=== PATIENT | female | born 1975 | race Caucasian/White ===

== ENCOUNTER 2023-04-17 03:45 | Inpatient (IN) | payer BC, SELFPAY ==
[2023-04-16 20:40] VITALS: BP 175/101
[2023-04-16 20:55] LABS: % Basophils 0.6 % (0-2); % Eosinophils 1.4 % (0-6); % Immature Granulocytes 0.1 % (0-0.5); % Lymphocytes 28.1 % (20.5-51.1); % Monocytes 6.3 % (1.7-9.3); % Neutrophils 63.5 % (42.2-75.2); Absolute Basophils 0.1 10^3/uL (0-0.2); Absolute Eosinophils 0.1 10^3/uL (0-0.7); Absolute Lymphocytes 2.4 10^3/uL (1.2-3.4); Absolute Monocytes 0.5 10^3/uL (0.1-0.6); Absolute Neutrophils 5.4 10^3/uL (1.4-6.5); Hematocrit 33.2 % (37.0-47.0); Hemoglobin 11.7 g/dL (12.0-16.0); Mean Corp Hgb Conc. 35.2 g/dL (33.0-37.0); Mean Corpuscular Hgb 30.1 pg (27.0-31.0); Mean Corpuscular Volume 85.3 fL (81.0-99.0); Mean Platelet Volume 9.7 fL (7.4-10.4); Nucleated Red Blood Cells % 0 %; Platelet Count 313 10^3/uL (130-400); Red Blood Cell Count 3.89 10^6/uL (4.20-5.40); Red Cell Dist. Width 11.9 % (11.5-14.5); White Blood Cell Count 8.5 10^3/uL (4.8-10.8)
[2023-04-16 21:08] LABS: HCG, Serum Qualitative Screen Negative
[2023-04-16 21:12] LABS: ALT (SGPT) 19 U/L (0-35); AST (SGOT) 25 U/L (14-36); Albumin 4.4 g/dl (3.5-5.0); Alkaline Phosphatase 75 U/L (38-126); Blood Urea Nitrogen 27 mg/dl (7-17); Calcium 9.3 mg/dl (8.4-10.2); Carbon Dioxide 23 mmol/L (22-30); Chloride 104 mmol/L (98-107); Glucose 150 mg/dl (70-99); Lipase 136 U/L (23-300); Potassium 3.8 mmol/L (3.5-5.1); Sodium 136 mmol/L (135-145); Total Bilirubin 0.5 mg/dl (0.2-1.3); Total Protein 7.2 g/dl (6.3-8.2); eGFR 25.58
[2023-04-16 22:05] VITALS: BP 141/81
--- NOTE | 2023-04-16 22:21 | ED.GENMED ---
History of Present Illness
<CORNELIUS Berger - Last Filed: 04/16/23 22:46>
General
Chief Complaint: Abdominal Pain
Source: patient
Exam Limitations: none
Time Seen by Provider: 04/16/23 22:01
Nursing documentation reviewed up to this point in time: agreed with
Travel History
Have you had any contact with someone who has COVID-19?: Yes
Comment: herself
Do you have any symptoms of coronavirus? Fever > 100 degrees, chills, cough, shortness of breath, sore throat, loss of taste or smell, muscle aches, or headache?: Yes
Symptoms:: COVID + Wednesday
History of Present Illness
History of Present Illness:
This is a 47 year old female, with a hx of GERD, HTN, HLD, and polycystic kidneys, reporting to the ED c/o R upper abdominal pain x 2 days. Pt states she tested positive for COVID 4 days ago and she had symptoms of fever, body aches, and congestion.
2 days later, she developed R upper abdominal pain that has been worsening. She states the pain is constant and sharp and rates it a 10/10 in severity. Pt states the pain is worsened with movement. She took tylenol today around 9 hours ago. Pt also
adds that she had 2-3 episodes of diarrhea 4 days ago, but that has since resolved. She denies fever, chills, CP, SOB, LUGO, n/v, constipation, dysuria, hematuria, reflux, cough, palpitations, leg pain or swelling.
Pt drinks a couple of alcoholic drinks weekly. She denies any drug use. Denies any allergies.
Past History
<CORNELIUS Berger - Last Filed: 04/16/23 22:46>
Past History
ED Past Medical History: GERD, HTN and Other (polycystic liver and kidney ds, Gamboa's esophagus); Negative NIDDM
ED Past Surgical History: Orthopedic; Negative Appendectomy or Cholecystectomy
Patient has exhibited threatening behavior?: No
Social History
Tobacco: Non-smoker
Alcohol: Occasional
Drug: None
Personal:
Living: with family
Employment: Employed
Family History
Family History: Diabetes, Hypertension, CAD and Other (polycystic kidneys)
Review of Systems
<Eugenio Lorenzocoby [facility] - Last Filed: 04/16/23 22:46>
Review of Systems
Allergies reviewed?: Yes
All Other Systems: ROS reviewed and negative except as documented in HPI and ROS
Constitutional: Reports no symptoms; Denies fever or chills
EENT: Reports other (congestion)
Respiratory: Reports no symptoms; Denies cough or trouble breathing
Cardiac: Reports no symptoms; Denies chest pain or palpitations
ABD/GI: Reports abdominal pain (R upper abdominal pain); Denies nausea, vomiting or constipated
: Reports no symptoms; Denies dysuria or bleeding
Musculoskeletal: Reports no symptoms
Skin: Reports no symptoms
Neurological: Reports no symptoms
Phy Exam
<Eugenio Fernando [facility] - Last Filed: 04/16/23 22:46>
General Physical Exam
General Presentation: moderate distress
General age: appears stated age
General Skin: warm and dry
General Habitus: normal
General Mental: alert
General Hydration: appears well hydrated
Cardiovascular Exam
Cardiovascular Exam: regular rate/rhythm, no edema, no murmur and normal peripheral pulses
Heart Sounds: normal
Pulmonary Exam
Pulmonary Exam: lungs clear, no rales, no crackles, no rhonchi, no wheezing and other (increased effort of breathing due to pain)
Oxygen Status: room air
Cough: no cough
Respirations: moderate effort
Gastrointestinal Exam
Gastrointestinal Exam: normal bowel sounds, non distended and tender (significant tenderness RUQ, palpation in LUQ elicits pain in RUQ)
Palpation: left upper quadrant: Severe tenderness, left lower quadrant: No tenderness, right upper quadrant: Severe tenderness and right lower quadrant: No tenderness
Auscultation of Abdomen: normal
Neurological Exam
Neurological Exam: alert and oriented x3
Musculoskeletal Exam
Musculoskeletal Exam: full ROM and no edema
Skin Exam
Skin Exam: normal color and warm/dry
Psychiatric Exam
Psychiatric Exam: normal mood/affect
<Flavio Zhang DO - Last Filed: 04/17/23 03:00>
Physical Exam
Physical Exam:
Physical Exam
General: no apparent distress, not acutely ill
Neck: No jaundice
Heart: Regular
Lungs: no acute respiratory distress no wheezing
Abdomen: Tender in the right upper abdomen
Neuro: alert and oriented. no focal neurological deficits
Skin: no rash
Psychiatric: well kept. interactive and cooperative
Extremities: no edema. no calf tenderness.
Course
<ST CelinePA - Last Filed: 04/16/23 22:46>
Orders/Labs/Results
Orders:
Orders
04/16/23 20:44
Test Result ONCE
04/16/23 20:49
CBC/With Diff [Complete Blood Count/With Diff] Urgent
CMP [Comprehensive Metabolic Panel] Urgent
HCG, Serum Qualitative Screen Urgent
Lipase Urgent
04/16/23 22:55
Electrocardiogram (*1) Stat
Reason for Study: Abdominal Pain
Cardiac Monitoring- Treatment ONCE
EKG- Treatment ONCE
IV Insert/Care/Rem.- Treatment PRN
0.9% Sodium Chloride 250 ml [Nss] 250 ml IV BOLUS
Morphine Sulfate 4 mg IV NOW STA
Ondansetron Injectable [Zofran] 4 mg IV NOW STA
US Abdomen Complete/Upper Urgent
Comment:
Reason For Exam: ruq trevino
04/16/23 22:56
Acetaminophen 1000MG/100Ml [Ofirmev] 1,000 mg in 100 ml IV ONCE
Acetaminophen IV Indication:: ED Narcotic Naive Pt-ONCE
CR Chest - 2 Views Urgent
Comment:
Reason For Exam: covid pain
04/17/23 00:54
CT Abd/pel Without Iv Or Oral Urgent
Comment:
Reason For Exam: ruq trevino cyssts
Abnormal Lab Results
04/16/23
20:49
RBC 3.89 L 10^6/uL
(4.20-5.40)
Hgb 11.7 L g/dL
(12.0-16.0)
Hct 33.2 L %
(37.0-47.0)
BUN 27 H mg/dl
(7-17)
Creatinine 2.3 H mg/dL
(0.6-1.0)
Glucose 150 H mg/dl
(70-99)
04/16/23 20:49
04/16/23 20:49
Vital Signs
Initial and Last Documented VS:
Initial Vital Signs
Temp Pulse Resp BP Pulse Ox
98.1 F 98 16 175/101 98
04/16/23 20:40 04/16/23 20:40 04/16/23 20:40 04/16/23 20:40 04/16/23 20:40
Last Documented Vital Signs
Temp Pulse Resp BP Pulse Ox
98.1 F 80 18 120/70 93
04/16/23 20:40 04/17/23 02:00 04/17/23 02:00 04/17/23 01:00 04/17/23 02:00
Neolt;Flavio Zhang, DO - Last Filed: 04/17/23 03:00>
Orders/Labs/Results
Orders:
Orders
04/16/23 20:44
Test Result ONCE
04/16/23 20:49
CBC/With Diff [Complete Blood Count/With Diff] Urgent
CMP [Comprehensive Metabolic Panel] Urgent
HCG, Serum Qualitative Screen Urgent
Lipase Urgent
04/16/23 22:55
Electrocardiogram (*1) Stat
Reason for Study: Abdominal Pain
Cardiac Monitoring- Treatment ONCE
EKG- Treatment ONCE
IV Insert/Care/Rem.- Treatment PRN
0.9% Sodium Chloride 250 ml [Nss] 250 ml IV BOLUS
Morphine Sulfate 4 mg IV NOW STA
Ondansetron Injectable [Zofran] 4 mg IV NOW STA
US Abdomen Complete/Upper Urgent
Comment:
Reason For Exam: ruq trevino
04/16/23 22:56
Acetaminophen 1000MG/100Ml [Ofirmev] 1,000 mg in 100 ml IV ONCE
Acetaminophen IV Indication:: ED Narcotic Naive Pt-ONCE
CR Chest - 2 Views Urgent
Comment:
Reason For Exam: covid pain
04/17/23 00:54
CT Abd/pel Without Iv Or Oral Urgent
Comment:
Reason For Exam: ruq trevino cyssts
Abnormal Lab Results
04/16/23
20:49
RBC 3.89 L 10^6/uL
(4.20-5.40)
Hgb 11.7 L g/dL
(12.0-16.0)
Hct 33.2 L %
(37.0-47.0)
BUN 27 H mg/dl
(7-17)
Creatinine 2.3 H mg/dL
(0.6-1.0)
Glucose 150 H mg/dl
(70-99)
04/16/23 20:49
04/16/23 20:49
Vital Signs
Initial and Last Documented VS:
Initial Vital Signs
Temp Pulse Resp BP Pulse Ox
98.1 F 98 16 175/101 98
04/16/23 20:40 04/16/23 20:40 04/16/23 20:40 04/16/23 20:40 04/16/23 20:40
Last Documented Vital Signs
Temp Pulse Resp BP Pulse Ox
98.1 F 80 18 120/70 93
04/16/23 20:40 04/17/23 02:00 04/17/23 02:00 04/17/23 01:00 04/17/23 02:00
<CORNELIUS Berger - Last Filed: 04/16/23 22:46>
MDM/Problems Addressed
Differential Diagnosis Includes:
cholecystitis, biliary colic, appendicitis, PE, [place], pancreatitis, peptic ulcer disease
Chronic conditions affecting care: HTN and Kidney disease
<Flavio Zhang DO - Last Filed: 04/17/23 03:00>
*Critical Care Note
Total Time (30-74mins, 75-104mins- exclusive of procedures): Not Applicable
<Flavio Zhang DO - Last Filed: 04/17/23 03:00>
Update Note
Update Note:
2:59 AM labs noted prior ultrasound noted CT vision noted multiple cysts in the kidney and liver suspected stone in the gallbladder neck which would fit clinically at this point I believe is resolving her in the hospital for analgesia consideration
for advanced imaging or specialty consultation
ED Attending Note
<CORNELIUS Berger - Last Filed: 04/16/23 22:46>
-
Portions of this chart may have been created with voice recognition software.� Occasional wrong word or��sound alike� substitutions may have occurred due to the inherent limitations of voice recognition software.
<Flavio Zhang DO - Last Filed: 04/17/23 03:00>
ED Attending Note
Patient seen and examined by attending physician: Yes
I performed the substantive portion of visit, reviewed & personally made and approve the management plan that is documented in note by myself or KAYLAN.: Yes
ED Attending Note:
Seen with student agree with assessment and plan, 47-year-old female polycystic kidney disease hypertensive followed by nephrology MATT for for 5 days right upper quadrant pain sharp worse with movement did have some fevers, mild cough, labs are
noted creatinine is at her baseline, will check chest x-ray right upper quadrant ultrasound lipase, obviously hold NSAIDs, follow her clinical response
Discharge Plan
Departure
Patient Disposition: Admit
Date of Disposition: 04/17/23
Time of Disposition: 02:59
Admit to: Med/Surg
Presentation/result/management discussed w/ accepting MD/DO: Hospitalist
Patient with high blood pressure during this ER visit?: No
Condition: Fair
Discharge Problem:
Abdominal pain
Prescriptions:
No Action
amlodipine 5 MG tablet
5 mg PO BID
esomeprazole magnesium [Nexium] 40 MG capsule,delayed release(DR/EC)
40 mg PO DAILY
lisinopril [Zestril] 40 MG tablet
40 mg PO DAILY
ferrous sulfate [Slow Fe] 142 MG tablet extended release
142 mg PO DAILY
vo-uv-gxsn-FA-Ca carb-vit K [Women's Daily Formula] 1 EACH tablet
1 ea PO DAILY
Lactobacillus acidophilus [Probiotic] 1 EACH capsule
1 ea PO DAILY
tolvaptan (polycys kidney dis) [Jynarque] 30 MG tablet
30 mg PO QPM
tolvaptan (polycys kidney dis) [Jynarque] 30 MG tablet
60 mg PO DAILY
hydrocodone-acetaminophen 1 TABLET tablet
1 tab PO Q4HPRN PRN (Reason: pain>4/10) Qty: 20 0RF
Rx Instructions:
take with daily stool softener
Referrals:
UNKNOWN - PT DOES,NOT KNOW [Family Provider] -
Interventions
Interventions:
ED- Fall Risk Assessment Last Done: 04/16/23 22:10
UI-Fnsvyg-Nhwdjedbhl Assessment Last Done: 04/16/23 22:10
[2023-04-16 23:00] VITALS: BP 149/84
[2023-04-16] MEDS: MORPHINE SULFATE 4 MG IV (23:21)
[2023-04-16] MEDS: ZOFRAN 4 MG IV (23:21)
[2023-04-17] VITALS (8 sets, daily range): BP systolic 120–165; BP diastolic 70–92; BMI 35.1; BMI 34.6
--- NOTE | 2023-04-17 03:09 | ED.GENMED ---
History of Present Illness
General
Chief Complaint: Abdominal Pain
Time Seen by Provider: 04/16/23 22:01
Travel History
Have you had any contact with someone who has COVID-19?: Yes
Comment: herself
Do you have any symptoms of coronavirus? Fever > 100 degrees, chills, cough, shortness of breath, sore throat, loss of taste or smell, muscle aches, or headache?: Yes
Symptoms:: COVID + Wednesday
Past History
Past History
ED Past Medical History: GERD, HTN and Other (polycystic liver and kidney ds, Gamboa's esophagus); Negative NIDDM
ED Past Surgical History: Orthopedic; Negative Appendectomy or Cholecystectomy
Patient has exhibited threatening behavior?: No
Social History
Tobacco: Non-smoker
Alcohol: Occasional
Drug: None
Personal:
Living: with family
Employment: Employed
Family History
Family History: Diabetes, Hypertension, CAD and Other (polycystic kidneys)
Course
Orders/Labs/Results
Orders:
Orders
04/16/23 20:44
Test Result ONCE
04/16/23 20:49
CBC/With Diff [Complete Blood Count/With Diff] Urgent
CMP [Comprehensive Metabolic Panel] Urgent
HCG, Serum Qualitative Screen Urgent
Lipase Urgent
04/16/23 22:55
Electrocardiogram (*1) Stat
Reason for Study: Abdominal Pain
Cardiac Monitoring- Treatment ONCE
EKG- Treatment ONCE
IV Insert/Care/Rem.- Treatment PRN
0.9% Sodium Chloride 250 ml [Nss] 250 ml IV BOLUS
Morphine Sulfate 4 mg IV NOW STA
Ondansetron Injectable [Zofran] 4 mg IV NOW STA
US Abdomen Complete/Upper Urgent
Comment:
Reason For Exam: ruq trevino
04/16/23 22:56
Acetaminophen 1000MG/100Ml [Ofirmev] 1,000 mg in 100 ml IV ONCE
Acetaminophen IV Indication:: ED Narcotic Naive Pt-ONCE
CR Chest - 2 Views Urgent
Comment:
Reason For Exam: covid pain
04/17/23 00:54
CT Abd/pel Without Iv Or Oral Urgent
Comment:
Reason For Exam: ruq trevino cyssts
04/17/23 03:07
HYDROmorphone [Dilaudid] 0.5 mg IV NOW STA
04/17/23 03:08
Acetaminophen 1000 MG ONCE Acetaminophen 1000MG/100Ml [Ofirmev] 1,000 mg in 100 ml IV ONCE
Acetaminophen IV Indication:: ED Narcotic History-ONCE
Ondansetron Injectable [Zofran] 4 mg IV NOW STA
Abnormal Lab Results
04/16/23
20:49
RBC 3.89 L 10^6/uL
(4.20-5.40)
Hgb 11.7 L g/dL
(12.0-16.0)
Hct 33.2 L %
(37.0-47.0)
BUN 27 H mg/dl
(7-17)
Creatinine 2.3 H mg/dL
(0.6-1.0)
Glucose 150 H mg/dl
(70-99)
04/16/23 20:49
04/16/23 20:49
Vital Signs
Initial and Last Documented VS:
Initial Vital Signs
Temp Pulse Resp BP Pulse Ox
98.1 F 98 16 175/101 98
04/16/23 20:40 04/16/23 20:40 04/16/23 20:40 04/16/23 20:40 04/16/23 20:40
Last Documented Vital Signs
Temp Pulse Resp BP Pulse Ox
98.1 F 80 18 120/70 93
04/16/23 20:40 04/17/23 02:00 04/17/23 02:00 04/17/23 01:00 04/17/23 02:00
Update Note
Update Note:
Update patient still with pain to the right upper quadrant will redosed with meds mid
ED Attending Note
-
Portions of this chart may have been created with voice recognition software.� Occasional wrong word or��sound alike� substitutions may have occurred due to the inherent limitations of voice recognition software.
Discharge Plan
Departure
Patient Disposition: Admit
Date of Disposition: 04/17/23
Time of Disposition: 02:59
Admit to: Med/Surg
Presentation/result/management discussed w/ accepting MD/DO: Hospitalist
Patient with high blood pressure during this ER visit?: No
Condition: Fair
Discharge Problem:
Abdominal pain, Gallstones
Prescriptions:
No Action
amlodipine 5 MG tablet
5 mg PO BID
esomeprazole magnesium [Nexium] 40 MG capsule,delayed release(DR/EC)
40 mg PO DAILY
lisinopril [Zestril] 40 MG tablet
40 mg PO DAILY
Slow Fe 142 MG tablet extended release
142 mg PO DAILY
Women's Daily Formula 1 EACH tablet
1 ea PO DAILY
Jynarque 30 MG tablet
30 mg PO QPM
Jynarque 30 MG tablet
60 mg PO DAILY
Referrals:
UNKNOWN - PT DOES,NOT KNOW [Family Provider] -
Interventions
Interventions:
ED- Fall Risk Assessment Last Done: 04/16/23 22:10
WF-Qhigxv-Mmosaipshb Assessment Last Done: 04/16/23 22:10
[2023-04-17] MEDS: OFIRMEV 100 IV (03:16)
[2023-04-17] MEDS: ZOFRAN 4 MG IV ×2 (03:16→05:54)
--- NOTE | 2023-04-17 03:38 | HPS.HSE ---
Addendum entered and electronically signed by Prudencio Rivera DO 04/17/23 04:02:
A/P:
COVID-19 Infection
- Patient is vaccinated x 3 total - none recently.
- Initial symptoms were 2/3 with positive test on 04/12.
- Follow proper precautions for now - nearly out of window for isolation.
- No role for any COVID-specific medications as symptoms improving.
- Follow for any new / worsening symptoms.
Original Note:
Family Physician
-
Family Physician: NOT KNOW UNKNOWN - PT DOES
Chief Complaint
-
Abd Pain
History of Present Illness
Patient is a 47y F with PMH significant for polycystic disease involving the kidneys and liver who presents to ED complaining of RUQ pain. Patient states that symptoms started on Wednesday and have been constant / persistent since that time.
She notes pain in the RUQ that occasionally radiates to the back. Pain is worse with coughing / deep breathing / movement / etc. Patient denies N/V. No fevers / chills. No changes in bowel habits. Pain does not appear to be affected by eating.
Patient does have a prior history of biliary colic in 2019. Pain at that time was more classically colicky in nature and triggered by fatty foods, etc.
Cholecystectomy was not performed due to her polycystic liver.
Patient states that she developed cough and fatigue on Wednesday of this past weekend. She tested positive for COVID-19 on Wednesday of this week.
Patient had some initial loose stools which have since resolved. She states that her cough, malaise, etc seem to be consistently improving.
She has taken no medication for the COVID-19 besides Tylenol and NyQuil.
No other new medications.
Medical History
Past Medical History
Past Medical History: Reports Other
Additional Past Medical History:
Polycystic Kidney Disease
Hypertension
CKD III
GERD / Gamboa's Esophagus
Cholelithiasis
Anemia of CKD
Obesity
Phyllodes Tumor Right Breast
Past Surgical History: Reports Other
Additional Past Surgical History:
Right Lumpectomy
D&C
Bunionectomy
Social History
Tobacco: Non-smoker
Alcohol: Occasional
Drug: None
Personal:
Living: With Family
Family History
Family History: Not pertinent
Allergies / Home Medications
Allergies reflects when Allergies were last updated in [facility].
Home Medications with original date entered in [facility]
Allergy/Medication List:
Allergies
Allergy/AdvReac Type Severity Reaction Status Date / Time
No Known Allergies Allergy Verified 04/16/23 20:44
Home Medications
amlodipine 5 mg tablet 5 mg PO BID 07/08/21
esomeprazole magnesium 40 mg capsule,delayed release (Nexium) 40 mg PO DAILY 07/08/21
ferrous sulfate 142 mg (45 mg iron) tablet,extended release (Slow Fe) 142 mg PO DAILY 07/08/21
lisinopril 40 mg tablet (Zestril) 40 mg PO DAILY 07/08/21
gtkzpegq-cvo-asao-FA-Ca carb-vit K 18 mg iron-400 mcg-500 mg tablet (Women's Daily Formula) 1 ea PO DAILY 07/08/21
tolvaptan (polycys kidney dis) 30 mg tablet (Jynarque) 30 mg PO QPM 07/08/21
tolvaptan (polycys kidney dis) 30 mg tablet (Jynarque) 60 mg PO DAILY 07/08/21
Review of Systems
-
History Source: Patient
A 12 point ROS was completed and negative except as noted: Yes
Constitutional: Reports Fatigue; Denies Fever or Chills
EENT: Denies Sore Throat
Respiratory: Denies Cough or Trouble Breathing
Cardiac: Denies Chest Pain or Palpitations
Abdomen/GI: Reports Abdominal Pain and Nausea; Denies Vomiting, Diarrhea, Constipated, Bloody Stools or Black Stools
: Denies Dysuria or Frequency
Musculoskeletal: Denies Joint Pain or Edema
Neurological: Denies Dizzy or Headache
Psych: Denies Depression or Anxiety
Physical Exam
Vital Signs
Vital Signs
Temp Pulse Resp BP Pulse Ox
98.1 F 80 25 120/70 95
04/16/23 20:40 04/17/23 03:08 04/17/23 03:08 04/17/23 01:00 04/17/23 03:08
Physical Exam
General: Other (47y F in no acute distress.)
HEENT: Moist mucous membranes
Respiratory: Clear; No Wheezes, Rales or Rhonchi
Cardiac: S1/S2 and Regular Rhythm; No Murmur
GI: Soft, Non Distended, Normal Bowel Sounds and Other (Tenderness in RUQ and pain in RUQ with palpation in other areas of the abdomen. No guarding.)
Musculoskeletal: No Clubbing, No Cyanosis and No Edema
Neuro: AO x 3
Laboratory Results
-
04/16/23 20:49
04/16/23 20:49
Laboratory Results
Total Bilirubin 0.5 mg/dl (0.2-1.3) 04/16/23 20:49
AST 25 U/L (14-36) 04/16/23 20:49
ALT 19 U/L (0-35) 04/16/23 20:49
Alkaline Phosphatase 75 U/L (38-126) 04/16/23 20:49
Lipase 136 U/L (23-300) 04/16/23 20:49
Impression/Plan
-
A/P: Patient is a 47y F with PMH significant for PCKD who presents to ED complaining of RUQ pain x 3 days.
RUQ Pain
- Admit for further evaluation and treatment.
- Pain seems related to cholelithiasis with h/o biliary colic and CT suggesting stone in the neck of the gallbladder.
- Pain is somewhat atypical in that it is constant and characteristically more c/w pleuritic pain (worse with cough, breathing, movement).
- Given concurrent COVID-19 infection and other risk factors, ? thromboembolic disease in the RLL causing current symptoms.
- Evaluate / treat cholelithiasis as noted below.
- Single dose of therapeutic Lovenox for now (dosed for her renal function).
- Unable to obtain CTA given renal impairment. Check V/Q scan in AM to evaluate for possible PE.
Cholelithiasis
- CT scan shows stone in the neck of the gallbladder.
- Impacted stone may explain her more constant symptoms.
- Clear liquids for now.
- Supportive care with pain control, antiemetics, etc.
- Surgery evaluation for additional recommendations / options.
- Previously cholecystectomy was deferred given polycystic involvement of the liver.
- Follow for any new / worsening symptoms.
PCKD
CKD IIIb
- Stable. Renal function is at / near known baseline.
- Continue current med regimen including tolvaptan and lisinopril.
- IVFs for now to ensure adequate volume status, especially while on tolvaptan.
- Follow for changes in renal function, new symptoms, etc.
Benign Hypertension
- Stable. Continue current med regimen with holding parameters to avoid hypotension.
GERD / Gamboa's Esophagus
- Stable. Continue PPI.
DVT Prophylaxis: Lovenox dose now. V/Q scan as noted above - therapeutic or prophylactic regimen depending on those results.
Code Status: Full
[2023-04-17] MEDS: DILAUDID 0.5 MG IV (04:03)
[2023-04-17] MEDS: LOVENOX 100 MG SC ×2 (04:27→18:13)
--- NOTE | 2023-04-17 05:32 | PTCARENOTE ---
Received patient from ED. Patient AAOx3, lungs clear, shallow. Nausea and small amount of clear emesis upon arrival after walking to the bedside. Tender RUQ. Rates her pain 2/10. Pain is controlled from recent Dilaudid in ED. Patient oriented to the
unit. Call xavier in reach. Bedside commode placed at the bedside as requested. Patient verbalized an understanding to rings for transfers.
[2023-04-17] MEDS: NSS 1000 IV ×2 (05:40→15:44)
[2023-04-17 07:15] LABS: Hematocrit 30.9 % (37.0-47.0); Hemoglobin 10.9 g/dL (12.0-16.0); Mean Corp Hgb Conc. 35.3 g/dL (33.0-37.0); Mean Corpuscular Hgb 30.4 pg (27.0-31.0); Mean Corpuscular Volume 86.1 fL (81.0-99.0); Mean Platelet Volume 10.2 fL (7.4-10.4); Platelet Count 248 10^3/uL (130-400); Red Blood Cell Count 3.59 10^6/uL (4.20-5.40); Red Cell Dist. Width 11.8 % (11.5-14.5); White Blood Cell Count 8.3 10^3/uL (4.8-10.8)
[2023-04-17 07:42] LABS: ALT (SGPT) 15 U/L (0-35); AST (SGOT) 23 U/L (14-36); Albumin 3.6 g/dl (3.5-5.0); Alkaline Phosphatase 59 U/L (38-126); Blood Urea Nitrogen 26 mg/dl (7-17); Carbon Dioxide 21 mmol/L (22-30); Chloride 105 mmol/L (98-107); Direct Bilirubin 0.5 mg/dl (0.0-0.4); Estimated Creatinine Clearance 38 ml/min; Glucose 126 mg/dl (70-99); Potassium 3.8 mmol/L (3.5-5.1); Sodium 139 mmol/L (135-145); Total Bilirubin 0.5 mg/dl (0.2-1.3); Total Protein 6.2 g/dl (6.3-8.2); eGFR 28.53
[2023-04-17] MEDS: SAMSCA 60 MG PO (09:00)
[2023-04-17] MEDS: PROTONIX IV 40 MG IV (09:01)
[2023-04-17] MEDS: ZESTRIL 40 MG PO (09:01)
[2023-04-17] MEDS: NORVASC 5 MG PO ×2 (09:01→20:17)
[2023-04-17] MEDS: NSS (PRESERVATIVE FREE) 10 ML IV (09:02)
--- NOTE | 2023-04-17 10:03 | W.PN.HOSP.TC ---
Today's Communication/Plan
-
see A/P
Assessment / Plan
Assessment / Plan
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
radiates to the back.�Pain is worse with coughing / deep breathing / movement / etc.�Patient denies N/V.� No fevers / chills.� No changes in bowel habits.� Pain does not appear to be affected by eating.
Patient does have a prior history of biliary colic in 2019.� Pain at that time was more classically colicky in nature and triggered by fatty foods, etc.
Cholecystectomy was not performed due to her polycystic liver.
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
Patient had some initial loose stools which have since resolved.� She states that her cough, malaise, etc seem to be consistently improving.
She has taken no medication for the COVID-19 besides Tylenol and NyQuil.
No other new medications.
A/P:
# RUQ Abd Pain
Pain seems related to cholelithiasis with h/o biliary colic and CT suggesting stone in the neck of the gallbladder.
However pain is constant and more c/w pleuritic pain (worse with cough, breathing, movement).
Considering ?thromboembolic disease in setting of concurrent COVID-19 infection
Unable to obtain CTA given renal impairment.�Check V/Q scan for possible PE.
Can continue therapeutic Lovenox (dosed for her renal function) prior to VQ scan
# COVID-19 Infection
Patient is vaccinated x 3 total - none recently.
Initial symptoms on 04/10 with positive test on 04/12. Out of window for RemD , also NO need with improving symptoms
Follow proper precautions for now - nearly out of window for isolation.
# Cholelithiasis
CT scan shows stone in the neck of the gallbladder. Impacted stone may explain her more constant symptoms.
Clear liquids for now.
Supportive care with pain control, antiemetics, etc.
Surgery evaluation for additional recommendations / options.
Previously cholecystectomy was deferred given polycystic involvement of the liver.
# PCKD
# CKD IIIb�- Stable.�
Renal function is at / near known baseline.
Continue current med regimen including tolvaptan and lisinopril.
IVFs for now to ensure adequate volume status, especially while on tolvaptan.
# Benign Hypertension- Stable.�
Continue current med regimen with holding parameters to avoid hypotension.
# GERD / Gamboa's Esophagus�- Stable.�
Continue PPI.
DVT Prophylaxis:� Lovenox dose now.� V/Q scan as noted above - therapeutic or prophylactic regimen depending on those results.
Code Status:� Full
Anticipated Discharge: 24 - 48 hours
Subjective/Interval History
-
Date of Service: April 17, 2023
Objective Data
-
Labs:
Laboratory Results
04/17/23
07:00
WBC 8.3
Hgb 10.9 L
Hct 30.9 L
Plt Count 248 D
Sodium 139
Potassium 3.8
Chloride 105
Carbon Dioxide 21 L
BUN 26 H
Creatinine 2.1 H
Glucose 126 H
Calcium 9.0
Total Bilirubin 0.5
AST 23
ALT 15
Alkaline Phosphatase 59
Vital Signs:
Vital Signs
Temp Pulse Resp BP Pulse Ox
36.6 C 83 18 130/80 94
04/17/23 07:05 04/17/23 07:05 04/17/23 07:05 04/17/23 07:05 04/17/23 07:05
Review of Systems
-
Abdomen/GI: Reports Abdominal Pain (RUQ abd pain)
Physical Exam
-
General: Well Developed, Well Nourished, No Apparent Distress, Comfortable, Conversant and Obese; Negative Respiratory Distress
HEENT: Normocephalic, Atraumatic, Nose Appears Normal and Ears Appear Normal; Negative Oxygen
Respiratory: Clear to Auscultation and Non Labored Respirations; Negative Accessory Resp Muscle Use
Cardiac: Regular Rhythm and S1/S2
GI: Soft, Nondistended, Normal Bowel Sounds and Tender (RUQ)
Skin: Warm and Dry
Neuro: Awake, Alert, Oriented and AO x 3
Psych: Calm and Intact Judgement/Insight
Data Reviewed
-
CT Scan: Report Reviewed by me
Labs: Labs Reviewed by me
--- NOTE | 2023-04-17 11:44 | W.PN.UPDATE ---
Update Note
Progress Note Update
Surgery consult noted. Based on prior recommendations and imaging (reviewed by me), she is not a candidate for CCY at this institution 2/2 extensive cystic disease of her liver. The extensive cystic disease may also explain her more chronic pain in
this area, as clearly her liver capsule will be stretched by all the cysts. Furthermore she is presently on a diet and on full-dose A/C. In addition to this, she has active COVID-19 and is still within the recommended isolation window.
With all this in mind, direct pt encounter for surgical evaluation will be deferred. HIDA scan is ordered. If this shows non-occlusion of cystic duct, would then ADAT and defer surgical consult indefinitely. If there is a question of cystic duct
occlusion, she may require a percutaneous drain.
Further mgmt from surgery team will be guided by HIDA result
--- NOTE | 2023-04-17 15:17 | CM ---
CM following re: discharge planning.
Reviewed pt's chart, met with pt. pt's spouse and daughter at bedside. '
Pt is a 47 year old female, admitted with primary dx of RUQ Abd Pain, COVID+.
Pt reports she lives with in a 2 story townhouse, has 2 supportive daughters. 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
PCP: [facility]
Pharmacy: [facility].
D/C plan: home with anticipated no needs. to transport at discharge.
CM will follow with discharge plan updates as hospitalization progresses
[2023-04-17] MEDS: SAMSCA 30 MG PO (18:13)
[2023-04-17] MEDS: TYLENOL 650 MG PO (20:34)
--- NOTE | 2023-04-17 21:10 | PTCARENOTE ---
Patient c/o loose stool at times. Advised ADRIÁN Cardoso. Will send stool sample when collected as ordered.
[2023-04-18] MEDS: NSS 1000 IV (01:02)
[2023-04-18 06:00] VITALS: BMI 34.7
[2023-04-18] MEDS: LOVENOX 100 MG SC ×2 (06:29→18:09)
[2023-04-18 06:45] LABS: Mean Corp Hgb Conc. 35.5 g/dL (33.0-37.0); Mean Corpuscular Hgb 30.7 pg (27.0-31.0); Mean Corpuscular Volume 86.6 fL (81.0-99.0); Mean Platelet Volume 9.7 fL (7.4-10.4); Platelet Count 248 10^3/uL (130-400); Red Blood Cell Count 3.58 10^6/uL (4.20-5.40); Red Cell Dist. Width 11.9 % (11.5-14.5); White Blood Cell Count 5.9 10^3/uL (4.8-10.8)
[2023-04-18 07:05] VITALS: BP 149/102
[2023-04-18 07:12] LABS: Blood Urea Nitrogen 17 mg/dl (7-17); Calcium 8.7 mg/dl (8.4-10.2); Carbon Dioxide 24 mmol/L (22-30); Chloride 111 mmol/L (98-107); Estimated Creatinine Clearance 38 ml/min; Glucose 90 mg/dl (70-99); Potassium 3.6 mmol/L (3.5-5.1); Sodium 141 mmol/L (135-145); eGFR 28.53
[2023-04-18 09:06] VITALS: BMI 34.6
[2023-04-18] MEDS: SAMSCA 60 MG PO (09:22)
[2023-04-18] MEDS: ZESTRIL 40 MG PO (09:22)
[2023-04-18] MEDS: NORVASC 5 MG PO ×2 (09:22→19:45)
[2023-04-18] MEDS: NSS (PRESERVATIVE FREE) 10 ML IV (09:23)
[2023-04-18] MEDS: PROTONIX IV 40 MG IV (09:23)
[2023-04-18] MEDS: TYLENOL 650 MG PO ×2 (09:41→19:43)
--- NOTE | 2023-04-18 10:41 | W.PN.HOSP.TC ---
Today's Communication/Plan
-
see A/P
Assessment / Plan
Assessment / Plan
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
radiates to the back.�Pain is worse with coughing / deep breathing / movement / etc.�Patient denies N/V.� No fevers / chills.� No changes in bowel habits.� Pain does not appear to be affected by eating.
Patient does have a prior history of biliary colic in 2019.� Pain at that time was more classically colicky in nature and triggered by fatty foods, etc.
Cholecystectomy was not performed due to her polycystic liver.
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
Patient had some initial loose stools which have since resolved.� She states that her cough, malaise, etc seem to be consistently improving.
She has taken no medication for the COVID-19 besides Tylenol and NyQuil.
No other new medications.
A/P:
# RUQ Abd Pain, may be due to extensive liver cystic disease vs cholelithiasis with h/o biliary colic and CT suggesting stone in the neck of the gallbladder.
Will check VQ scan to r/o thromboembolic disease in setting of concurrent COVID-19 infection. Unable to obtain CTA given renal impairment.�
Continue therapeutic Lovenox (dosed for her renal function) prior to VQ scan
# Diarrhea
check C diff, stool Cx
# COVID-19 Infection
Patient is vaccinated x 3 total - none recently.
Initial symptoms on 04/10 with positive test on 04/12. Out of window for RemD , also NO need with improving symptoms
Follow proper precautions for now - nearly out of window for isolation.
# Cholelithiasis
CT scan shows stone in the neck of the gallbladder. Impacted stone may explain her more constant symptoms.
Clear liquids for now.
Supportive care with pain control, antiemetics, etc.
Surgery on board, does not recc surgical intervention, check HIDA scan
Previously cholecystectomy was deferred given polycystic involvement of the liver.
# PCKD
# CKD IIIb�- Stable.�
Renal function is at / near known baseline.
Continue current med regimen including tolvaptan and lisinopril.
# Benign Hypertension- Stable.�
Continue current med regimen with holding parameters to avoid hypotension.
# GERD / Gamboa's Esophagus�- Stable.�
Continue PPI.
DVT Prophylaxis:� therapeutic Lovenox dose prior to V/Q scan
Code Status:� Full
DW RN
Anticipated Discharge: 24 - 48 hours
Subjective/Interval History
-
Date of Service: April 18, 2023
Objective Data
-
Labs:
Laboratory Results
04/18/23
06:36
WBC 5.9
Hgb 11.0 L
Hct 31.0 L
Plt Count 248
Sodium 141
Potassium 3.6
Chloride 111 H
Carbon Dioxide 24
BUN 17
Creatinine 2.1 H
Glucose 90
Calcium 8.7
Vital Signs:
Vital Signs
Temp Pulse Resp BP Pulse Ox
37.0 C 88 20 149/102 94
04/18/23 07:05 04/18/23 07:05 04/18/23 07:05 04/18/23 07:05 04/18/23 07:05
I&O
04/17/23 04/18/23 04/19/23
06:59 06:59 06:59
Intake Total 3940 / 3940
Output Total 200 / 200
Balance -200 / -200 3940 / 3940
Review of Systems
-
Abdomen/GI: Reports Abdominal Pain (RUQ abd pain)
Physical Exam
-
General: Well Developed, Well Nourished, No Apparent Distress, Comfortable, Conversant and Obese; Negative Respiratory Distress
HEENT: Normocephalic, Atraumatic, Nose Appears Normal and Ears Appear Normal; Negative Oxygen
Respiratory: Clear to Auscultation and Non Labored Respirations; Negative Accessory Resp Muscle Use
Cardiac: Regular Rhythm and S1/S2
GI: Soft, Nondistended, Normal Bowel Sounds and Tender (RUQ)
Skin: Warm and Dry
Neuro: Awake, Alert, Oriented and AO x 3
Psych: Calm and Intact Judgement/Insight
Data Reviewed
-
CT Scan: Image personally visualized and interpreted and Report Reviewed by me
Labs: Labs Reviewed by me
--- NOTE | 2023-04-18 13:49 | CM ---
CM reviewed chart. No skilled discharge needs identified. Remains on room air. CM to continue to follow and assess for needs.
[2023-04-18 15:00] VITALS: BP 126/85
[2023-04-18] MEDS: SAMSCA 30 MG PO (18:09)
[2023-04-18 23:24] VITALS: BP 131/73
[2023-04-19] MEDS: LOVENOX SC ×3 (05:45→17:39)
[2023-04-19 06:00] VITALS: BMI 34.4
[2023-04-19 06:10] LABS: Hematocrit 32.4 % (37.0-47.0); Hemoglobin 11.2 g/dL (12.0-16.0); Mean Corp Hgb Conc. 34.6 g/dL (33.0-37.0); Mean Corpuscular Hgb 30.1 pg (27.0-31.0); Mean Corpuscular Volume 87.1 fL (81.0-99.0); Mean Platelet Volume 10.1 fL (7.4-10.4); Platelet Count 263 10^3/uL (130-400); Red Blood Cell Count 3.72 10^6/uL (4.20-5.40); Red Cell Dist. Width 11.9 % (11.5-14.5); White Blood Cell Count 6.6 10^3/uL (4.8-10.8)
[2023-04-19 06:39] LABS: Blood Urea Nitrogen 13 mg/dl (7-17); Calcium 8.7 mg/dl (8.4-10.2); Carbon Dioxide 23 mmol/L (22-30); Chloride 109 mmol/L (98-107); Estimated Creatinine Clearance 41 ml/min; Glucose 86 mg/dl (70-99); Potassium 3.7 mmol/L (3.5-5.1); Sodium 141 mmol/L (135-145); eGFR 30.25
[2023-04-19 07:10] VITALS: BP 151/92
[2023-04-19] MEDS: PROTONIX IV 40 MG IV (08:46)
[2023-04-19] MEDS: NSS (PRESERVATIVE FREE) 10 ML IV (08:47)
[2023-04-19] MEDS: SAMSCA 60 MG PO (08:48)
[2023-04-19] MEDS: ZESTRIL 40 MG PO (08:50)
[2023-04-19] MEDS: NORVASC 5 MG PO ×2 (08:50→20:51)
--- NOTE | 2023-04-19 15:11 | W.PN.HOSP.TC ---
Addendum entered and electronically signed by Charles Smith MD 04/19/23 16:00:
Patient seen and examined
Discussed with resident
Impression/plan:
Presentation with right upper quadrant pain
Exam with persistent right upper quadrant tenderness.
Afebrile with normal white count
CT scan of the abdomen consistent with cholelithiasis, although with no radiographic evidence of acute cholecystitis
HIDA scan is pending.
Clear liquid diet
Monitor closely off antibiotic
If surgical intervention required would be high risk given PKD and hepatic anatomic abnormalities. (Possible options percutaneous intervention versus tertiary facility transfer)
Right upper quadrant pain, P received possibly pleuritic pain on admission.
Concern for thromboembolic disease/PE.
Respiratory status stable.
Pain occasionally reproduced with deep inspiration.
Currently on weight-based Lovenox
VQ scan pending.
Will check echocardiogram and lower extremity Doppler for completeness
Original Note:
Today's Communication/Plan
-
Pending HIDA scan
Echo/Doppler to rule out clot.
Assessment / Plan
Assessment / Plan
A/P:
# RUQ Abd Pain, may be due to extensive liver cystic disease vs cholelithiasis with h/o biliary colic and CT suggesting stone in the neck of the gallbladder.
Will check VQ scan to r/o thromboembolic disease in setting of concurrent COVID-19 infection. Unable to obtain CTA given renal impairment.�
Continue therapeutic Lovenox (dosed for her renal function) prior to VQ scan
# COVID-19 Infection
Patient is vaccinated x 3 total - none recently.
Initial symptoms on 04/10 with positive test on 04/12. Out of window for RemD , also NO need with improving symptoms
Follow proper precautions for now - nearly out of window for isolation.
# Cholelithiasis
CT scan shows stone in the neck of the gallbladder. Impacted stone may explain her more constant symptoms.
Clear liquids for now.
Supportive care with pain control, antiemetics, etc.
Surgery on board, does not recc surgical intervention, check HIDA scan
Previously cholecystectomy was deferred given polycystic involvement of the liver.
# PCKD
# CKD IIIb�- Stable.�
Renal function is at / near known baseline.
Continue current med regimen including tolvaptan and lisinopril.
# Benign Hypertension- Stable.�
Continue current med regimen with holding parameters to avoid hypotension.
# GERD / Gamboa's Esophagus�- Stable.�
Continue PPI.
DVT Prophylaxis:� therapeutic Lovenox dose prior to V/Q scan
Code Status:� Full
DW RN
Anticipated Discharge: 24 - 48 hours
Subjective/Interval History
-
Date of Service: April 19, 2023
Objective Data
-
Labs:
Laboratory Results
04/19/23
05:07
WBC 6.6
Hgb 11.2 L
Hct 32.4 L
Plt Count 263
Sodium 141
Potassium 3.7
Chloride 109 H
Carbon Dioxide 23
BUN 13
Creatinine 2.0 H
Glucose 86
Calcium 8.7
Vital Signs:
Vital Signs
Temp Pulse Resp BP Pulse Ox
98.5 F 79 16 151/92 93
04/19/23 07:10 04/19/23 07:10 04/19/23 07:10 04/19/23 08:50 04/19/23 07:10
I&O
04/18/23 04/19/23 04/20/23
06:59 06:59 06:59
Intake Total 3940 / 3940 1580 / 1580
Balance 3940 / 3940 1580 / 1580
Physical Exam
-
General: Well Developed, Well Nourished, No Apparent Distress, Comfortable and Conversant
HEENT: Normocephalic and Atraumatic
Respiratory: Clear to Auscultation and Non Labored Respirations; Negative Accessory Resp Muscle Use
Cardiac: Regular Rhythm and S1/S2
GI: Soft, Nondistended, Normal Bowel Sounds and Tender (RUQ)
Skin: Warm and Dry
Neuro: Awake, Alert and Oriented
Psych: Calm and Intact Judgement/Insight
--- NOTE | 2023-04-19 15:31 | CM ---
Abdominal pain: extensive liver cystic disease vs cholelithiasis with h/o biliary colic and CT suggesting stone in the neck of the gallbladder. Not recommended for surgical intervention at this time. Will follow medical progression to determine
discharge plan of care. 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
[2023-04-19 16:27] VITALS: BP 162/89
--- NOTE | 2023-04-19 16:54 | W.PN.UPDATE ---
Update Note
Progress Note Update
Brief general surgery note:
HIDA scan negative. Gallbladder fills of quite promptly, ruling out acute cholecystitis.
Right upper quadrant pain is likely from polycystic liver disease. Given the extent of the liver disease as well as her kidney disease, we would recommend referral to a tertiary care center for further workup and follow-up as she may need an organ
transplant in the near future.
No acute general surgery intervention warranted at this time. We will sign off, please call with any questions or concerns.
[2023-04-19] MEDS: SAMSCA 30 MG PO (17:31)
[2023-04-19] MEDS: TYLENOL 650 MG PO (20:51)
[2023-04-19 23:10] VITALS: BP 141/81
[2023-04-19 23:45] VITALS: BP 141/81
[2023-04-20 06:00] VITALS: BMI 34.0
[2023-04-20] MEDS: LOVENOX SC (06:44)
[2023-04-20 07:05] VITALS: BP 161/93
[2023-04-20] MEDS: NORVASC 5 MG PO (08:08)
[2023-04-20] MEDS: NSS (PRESERVATIVE FREE) 10 ML IV (08:09)
[2023-04-20] MEDS: PROTONIX IV 40 MG IV (08:09)
[2023-04-20] MEDS: SAMSCA 60 MG PO (08:09)
[2023-04-20] MEDS: ZESTRIL 40 MG PO (08:09)
[2023-04-20] MEDS: TYLENOL 650 MG PO (08:10)
[2023-04-20] MEDS: FLUZONE QUAD 2023-2024 SYRINGE 0.5 ML IM (14:27)
--- NOTE | 2023-04-20 15:28 | W.DCSUMMARY ---
Documented by User: Reshma Fairchild MD, Resident 04/20/23 16:01
Discharge Summary
Discharge Data
Date of Admission: 04/17/23
Date of Discharge: 04/20/23
-
Pending Results: No
Hospital Course
Hospital Course
DISCHARGE DIAGNOSIS
1. Polycystic Kidney Disease with Hepatic Involvement
2. Cholelithiasis
3. Benign Hypertension
4. GERD
5. CKD IIIb
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 Patient states that the symptoms started as a constant persistent pain in the RUQ
that radiates to the back. Patient states that the pain is worse with coughing, deep breathing and movement. Patient denies Nausea, vomiting, chills and fever. At the time of presentation, patient had tested positive for COVID-19 the week before ,
and was experiencing symptoms of cough and fatigue. On admission, patient was afebrile and hemodynamically stable. Evaluation with CT scan showed gallstone seen in the vicinity of the gallbladder neck without gross pericholecystic inflammatory
changes, with no gross findings to suggest biliary tract dilatation, limited by innumerable hepatic cysts. Surgery was consulted and it was noted she is not a candidate for cholecystectomy at this institution given polycystic involvement of the
liver.
HIDA jimenez was ordered showed no evidence of acute cholecystitis or complete common bile duct obstruction. Given initial presentation of Pleuritic pain occasionally reproduced with deep inspiration, echocardiogram and Lower extremity Doppler were
ordered for completeness which were both unremarkable.
Given the extent of the liver disease as well as her kidney disease, the patient will be discharged with referral to a tertiary care center for further workup and follow-up as she may need an organ transplant in the near future.
Hypertension. The patient will be continued on current med regimen.
CKD IIIB- The patient will be continued on current med regimen including Tolvaptan and Lisinopril.
Next, on the date of discharge, the patient's vital signs: Temperature is 98.0 F, Heart Rate is 85 , Blood pressure 161/93, Respiratory rate 18, Pulse Ox is 94 on room air
PHYSICAL EXAMINATION:� She is alert, awake, oriented to name, place and time. His head is atraumatic, normocephalic. Neck is supple. Chest is clear to auscultation. Heart is regular without gallops or murmurs. Abdomen is soft, nondistended, tender
in the RUQ. Extremities show no peripheral edema.
Discharge Plan
-
Patient Disposition: Home (Routine Discharge)
Discharge Diagnosis/Procedures: Polycystic kidney disease with Hepatic involvement.
Presentation with RUQ with negative workup for Acute cholecystitis
Condition: Good
Diet: Regular
Activity: No restrictions
Referrals:
UNKNOWN - PT DOES,NOT KNOW [Family Provider] -
Prescriptions:
Continued
amlodipine 5 MG tablet
5 mg PO BID
lisinopril [Zestril] 40 MG tablet
40 mg PO DAILY
Slow Fe 142 MG tablet extended release
142 mg PO DAILY
Women's Daily Formula 1 EACH tablet
1 ea PO DAILY
Jynarque 30 MG tablet
30 mg PO QPM
Jynarque 30 MG tablet
60 mg PO DAILY
esomeprazole magnesium [Nexium] 40 MG capsule,delayed release(DR/EC)
40 mg PO DAILY Qty: 30 0RF
Discharge Orders:
Discharge Patient (As Directed); Ordered 04/20/23
Ordered By: Reshma Fairchild
Discharge Date and Time
Discharge Date/Time: 04/20/23 16:18

Documented by User: Charles Smith MD 04/20/23 17:54
Discharge Summary
Discharge Data
Date of Admission: 04/17/23
Date of Discharge: 04/20/23
Discharge Plan
-
Patient Disposition: Home (Routine Discharge)
Discharge Diagnosis/Procedures: Polycystic kidney disease with Hepatic involvement.
Presentation with RUQ with negative workup for Acute cholecystitis
Condition: Good
Diet: Regular
Activity: No restrictions
Referrals:
UNKNOWN - PT DOES,NOT KNOW [Family Provider] -
Prescriptions:
Continued
amlodipine 5 MG tablet
5 mg PO BID
lisinopril [Zestril] 40 MG tablet
40 mg PO DAILY
Slow Fe 142 MG tablet extended release
142 mg PO DAILY
Women's Daily Formula 1 EACH tablet
1 ea PO DAILY
Jynarque 30 MG tablet
30 mg PO QPM
Jynarque 30 MG tablet
60 mg PO DAILY
esomeprazole magnesium [Nexium] 40 MG capsule,delayed release(DR/EC)
40 mg PO DAILY Qty: 30 0RF
Discharge Orders:
Discharge Patient (As Directed); Ordered 04/20/23
Ordered By: Reshma Fairchild
Discharge Date and Time
Discharge Date/Time: 04/20/23 16:18
--- NOTE | 2023-04-20 15:49 | PTCARENOTE ---
Patient discharged home. This RN reviewed patient's discharge medications and instructions with patient who verbalized understanding. IV removed by this RN, patient dressed and gathered belongings in room. Patient being transported home by spouse,
taken down to car via staff escort and wheelchair.
--- NOTE | 2023-04-20 16:38 | CM ---
Chart reviewed
No needs noted
d/c to home no needs
--- NOTE | 2023-04-20 17:55 | W.DS.TRANS ---
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
-
Discharge Instructions:
Discharge Diagnosis/Procedures Polycystic kidney disease with Hepatic
involvement.
Presentation with RUQ with negative workup for
Acute cholecystitis
Diet Regular
Activity No restrictions
Instructions:
Stand-Alone Forms:
Changes to Home Medications: No
Discharge Medications:
DC Medications w/original date entered in [employer]
amlodipine 5 mg tablet 5 mg PO BID Blood Pressure 07/08/21
ferrous sulfate 142 mg (45 mg iron) tablet,extended release (Slow Fe) 142 mg PO DAILY ANEMIA/IRON DEFICIENCY 07/08/21
lisinopril 40 mg tablet (Zestril) 40 mg PO DAILY Blood Pressure 07/08/21
[id number] carb-vit K 18 mg iron-400 mcg-500 mg tablet (Women's Daily Formula) 1 ea PO DAILY Supplement 07/08/21
tolvaptan (polycys kidney dis) 30 mg tablet (Jynarque) 30 mg PO QPM Kidney Disease 07/08/21
tolvaptan (polycys kidney dis) 30 mg tablet (Jynarque) 60 mg PO DAILY Kidney Disease 07/08/21
esomeprazole magnesium 40 mg capsule,delayed release (Nexium) 40 mg PO DAILY Gastrointestinal Issue #30 caps 04/20/23
Home Medication Changes
Pending Results: No
== END 2023-04-20 16:18 | disposition home or self-care (01) | DRG 444 ==
LOC: 2 NORTH 03:45
PROVIDERS: Emergency Medicine; Internal Medicine; ADMITTING PHYSICIAN Hospitalist; ATTENDING PHYSICIAN Internal Medicine; EMERGENCY PHYSICIAN Emergency Medicine
PROC: 3E02340 Introduction of Influenza Vaccine into Muscle, Percutaneous Approach (ICD-10-PCS; 2023-04-20)
DX: K80.20 Calculus of gallbladder without cholecystitis without obstruction (principal); U07.1 COVID-19; Q44.6 Cystic disease of liver; Q61.3 Polycystic kidney, unspecified; K21.9 Gastro-esophageal reflux disease without esophagitis; I15.1 Hypertension secondary to other renal disorders; N18.32 Chronic kidney disease, stage 3b; E78.5 Hyperlipidemia, unspecified; D63.1 Anemia in chronic kidney disease; D48.61 Neoplasm of uncertain behavior of right breast; E66.9 Obesity, unspecified; R19.7 Diarrhea, unspecified; K22.70 Barrett's esophagus without dysplasia; Z23 Encounter for immunization; Z68.34 Body mass index [BMI] 34.0-34.9, adult
CPT/HCPCS: 71046; 74176; 76700; 78226; 80048; 80053; 80076; 83690; 84703; 85025; 85027; 90686; 93005; 93306; 93970; 96374; 96375; 96376; 99285; A9537; G0008

== ENCOUNTER → 2024-02-14 14:11 | Outpatient (REF) | payer BC, SELFPAY | LOC: WDC 14:11 | PROVIDERS: ATTENDING PHYSICIAN Obstetrics & Gynecology; FAMILY PHYSICIAN Physician Assistant | DX: Z12.31 Encounter for screening mammogram for malignant neoplasm of breast (principal) | CPT/HCPCS: 77063; 77067 ==

== ENCOUNTER → 2024-06-06 10:23 | Outpatient (REF) | payer BC, SELFPAY | LOC: HWRAD 10:23 | PROVIDERS: ATTENDING PHYSICIAN Nurse Practitioner Family; FAMILY PHYSICIAN Internal Medicine | DX: N95.8 Other specified menopausal and perimenopausal disorders (principal) | CPT/HCPCS: 76830; 76856 ==

== ENCOUNTER 2024-07-06 06:18 | Day surgery (SDC) | payer BC, SELFPAY ==
[2024-06-26 13:49] LABS: % Basophils 0.5 % (0-2); % Eosinophils 1.2 % (0-6); % Immature Granulocytes 0.3 % (0-0.5); % Lymphocytes 19.3 % (20.5-51.1); % Monocytes 7.6 % (1.7-9.3); % Neutrophils 71.1 % (42.2-75.2); Absolute Eosinophils 0.1 10^3/uL (0-0.7); Absolute Lymphocytes 1.4 10^3/uL (1.2-3.4); Absolute Monocytes 0.6 10^3/uL (0.1-0.6); Absolute Neutrophils 5.3 10^3/uL (1.4-6.5); Hematocrit 32.8 % (37.0-47.0); Hemoglobin 11.2 g/dL (12.0-16.0); Mean Corp Hgb Conc. 34.1 g/dL (33.0-37.0); Mean Corpuscular Hgb 30.6 pg (27.0-31.0); Mean Corpuscular Volume 89.6 fL (81.0-99.0); Mean Platelet Volume 10.5 fL (7.4-10.4); Nucleated Red Blood Cells % 0 %; Platelet Count 274 10^3/uL (130-400); Red Blood Cell Count 3.66 10^6/uL (4.20-5.40); Red Cell Dist. Width 13.1 % (11.5-14.5); White Blood Cell Count 7.4 10^3/uL (4.8-10.8)
[2024-06-26 13:59] LABS: INR 0.97; PT 13.2 Sec (11.4-14.6)
[2024-06-26 14:00] LABS: APTT 31.3 Sec (23.4-35.0)
[2024-06-26 14:15] VITALS: BMI 36.8
[2024-07-06] VITALS (7 sets, daily range): BP systolic 129–143; BP diastolic 76–90; BMI 36.8
[2024-07-06] MEDS: TYLENOL 1000 MG PO (10:34)
[2024-07-06] MEDS: NORMOSOL-R/PLASMALYTE-A 1000 IV (10:36)
== END 2024-07-06 13:30 | disposition home or self-care (01) ==
LOC: SDS 06:18
PROVIDERS: ATTENDING PHYSICIAN Obstetrics & Gynecology; FAMILY PHYSICIAN Internal Medicine
DX: N92.6 Irregular menstruation, unspecified (principal); N93.9 Abnormal uterine and vaginal bleeding, unspecified; D25.0 Submucous leiomyoma of uterus; N84.0 Polyp of corpus uteri; N88.8 Other specified noninflammatory disorders of cervix uteri; D26.1 Other benign neoplasm of corpus uteri
CPT/HCPCS: 58558; 88305; 36415; 85025; 85610; 85730; 86850; 86900; 86901